=== PATIENT | male | born 1990 | race Caucasian/White ===

== ENCOUNTER 2024-01-06 03:47 | Inpatient (IN) ==
[2024-01-06] MEDS ORDERED: Al Hydrox/Mg Hydrox/Simet LIQ 30 ML UDC PO PRN (06:10)
[2024-01-06 10:32] LABS: ABS Eosinophils 0.1 10^3/uL (0.0-0.5); ABS Monocytes 0.5 10^3/uL (0.0-1.1); ABS Neutrophils 3.2 10^3/uL (1.5-7.6); Eosinophil % 1.5 %; Hematocrit 44.9 % (38-53); Hemoglobin 15.6 g/dL (13.2-16.3); Lymphocyte % 33.8 %; Mean Corpuscular Hemoglobin 31.9 pg (27-33); Mean Corpuscular Hgb Conc 34.7 g/dL (31-36); Mean Corpuscular Volume 92.1 fL (80-97); Mean Platelet Volume 7.6 fL (7.5-11.2); Nucleated Red Blood Cells % 0.1 %/100WBC (0.0-0.8); Platelet Count 243 10^3/uL (150-450); Red Blood Count 4.88 10^6/uL (4.06-5.63); Red Cell Distribution Width 12.7 % (12-17); White Blood Count 5.9 10^3/uL (3.6-10.2)
[2024-01-06] MEDS: Vitamin THERAPEUTIC TAB PO SCH (10:44)
[2024-01-06 11:36] LABS: Albumin/Globulin Ratio 2.3 (1-3); Creatinine, Serum 1.03 mg/dL (0.67-1.17); Globulin 2.2 g/dL (2-4); Potassium 3.9 mmol/L (3.5-5.0); Total Bilirubin 1.2 mg/dL (0.2-1.0); Total Protein 7.2 g/dL (6.4-8.9); eGFR CKD-EPI 98.4 (>60)
[2024-01-06 11:49] LABS: TSH Ultra Thyroid Stim Horm 1.32 mcIU/mL (0.34-5.60)
[2024-01-06 12:48] LABS: Urine Appearance Clear; Urine Bilirubin Negative (Negative); Urine Blood Negative (Negative); Urine Color Yellow; Urine Glucose Negative (Negative); Urine Ketones Trace (Negative); Urine Nitrite Negative (Negative); Urine Protein Trace (Negative); Urine Specific Gravity 1.036 (1.002-1.030); Urine Urobilinogen Negative (Negative); Urine pH 5.5 (5.0-8.0)
[2024-01-06 13:55] LABS: Urine Benzodiazepine Screen None Detected (None Detect); Urine Cannabinoids Screen None Detected (None Detect); Urine Opiates Screen None Detected (None Detect)
[2024-01-06] MEDS: OLANZapine 10 mg TAB*ODT PO SCH (22:09)
[2024-01-08] MEDS: OLANZapine 5 mg TAB *ODT PO PRN (00:39)
[2024-01-08 08:29] LABS: HDL Cholesterol 47.2 mg/dL
[2024-01-09] MEDS: OLANZapine 10 mg TAB*ODT PO SCH (21:07)
[2024-01-21] MEDS: Polyethylene Glycol 3350 17 GM PACKET PO PRN (20:53)
[2024-01-22] MEDS: Paliperidone SUSTENNA 234 MG/1.5 ML IM ONE (10:11)
[2024-01-25] MEDS: Paliperidone SUSTENNA 156 MG/1 ML IM ONE (13:53)
[2024-01-27 10:46] VITALS: BP 112/74
[2024-02-26] MEDS ORDERED: Paliperidone SUSTENNA 117 MG/0.75 ML IM ONE (10:14)
== END 2024-01-27 10:49 | disposition home or self-care (01) | DRG 885 ==
LOC: ED 03:47 → EDHOLD 05:40 → BSU 06:59
PROVIDERS: ADMIT Psychiatry & Neurology Psychiatry; ATTEND Psychiatry & Neurology Psychiatry